=== PATIENT | female | born 1970 | race Caucasian/White ===

== ENCOUNTER 2017-06-01 10:31 | Emergency (ER) | payer MEDICAID ==
[~2017-06-01] VITALS: Ht 165.1 cm; Wt 75.3 kg
[2017-06-01] MEDS ORDERED: HYDROcodone/APAP 5/325 TABLET PO ONE (11:30)
[2017-06-01] MEDS ORDERED: KETOROLAC 30 MG/1 ML IM ONE (11:30)
[2017-06-01] MEDS ORDERED: HYDROcodone/APAP 5/325 TABLET ONE (11:38)
[2017-06-01] MEDS ORDERED: KETOROLAC 30 MG/1 ML ONE (11:38)
[2017-06-01] MEDS ORDERED: METOPROLOL TARTRATE 50 MG TABLET PO ONE (13:00)
[2017-06-01 13:10] VITALS: BP 160/99
== END 2017-06-01 13:13 | disposition home or self-care (01) ==
LOC: ED 12:39
DX: S43.422A Sprain of left rotator cuff capsule, initial encounter (principal); I10 Essential (primary) hypertension; F17.200 Nicotine dependence, unspecified, uncomplicated; X58.XXXA Exposure to other specified factors, initial encounter; Y93.89 Activity, other specified; Y92.89 Other specified places as the place of occurrence of the external cause; Y99.9 Unspecified external cause status
CPT/HCPCS: 73030; 96372; 99284; J1885